=== PATIENT | female | born 1970 | race Two or more races ===

== ENCOUNTER 2018-02-13 23:19 | Emergency (ER) | payer OTHER ==
[~2018-02-13] VITALS: Ht 152.4 cm; Wt 72.6 kg
[2018-02-14] MEDS ORDERED: cloNIDine HCL 0.1 MG TAB PO ONE (00:45)
[2018-02-14 00:50] LABS: Basophils # (auto) 0.1 uL; Basophils % (auto) 1.1 % (0.0-2.0); Eosinophils # (auto) 0.3 uL; Eosinophils % (auto) 2.7 % (0.0-7.0); Hematocrit 43.3 % (36.0-46.0); Hemoglobin 14.7 g/dL (12.2-16.2); Lymphocytes % (auto) 29.1 % (10.0-50.0); Mean Corpuscular Hemoglobin 31.1 pg (28.0-32.0); Mean Corpuscular Hgb Conc. 33.9 g/dL (32.0-36.0); Mean Corpuscular Volume 91.6 fL (80.0-100.0); Monocytes # (auto) 0.8 uL; Monocytes % (auto) 7.8 % (0.0-12.0); Neutrophils # (auto) 6.1 uL; Neutrophils % (auto) 59.3 % (37.0-80.0); Nucleated Red Blood Cells % 0.1 %; Platelet Count (auto) 381 10^3/uL (140-450); Red Blood Cells 4.73 10^6/uL (4.0-5.20); Red Cell Distribution Width 13.3 % (11.8-14.3); White Blood Cell 10.3 10^3/uL (4.4-10.8)
[2018-02-14 01:05] LABS: Alanine Aminotransferase 40 U/L (13-56); Albumin 3.7 g/dL (3.4-5.0); Anion Gap 10 (5-15); Aspartate Aminotransferase 18 U/L (15-37); BUN/Creatinine Ratio 13.2; Blood Urea Nitrogen 14 mg/dL (7-18); Calcium 8.1 mg/dL (8.5-10.1); Carbon Dioxide 24 mmol/L (21-32); Chloride 106 mmol/L (98-107); GFR African American 72 mL/min; GFR Non-African American 59 mL/min; Glucose 95 mg/dL (74-106); Potassium 3.6 mmol/L (3.5-5.1); Sodium 140 mmol/L (136-145)
[2018-02-14 01:08] LABS: Alkaline Phosphatase 97 U/L (45-117); Bilirubin, Total 0.4 mg/dL (0.2-1.0); Total Protein 7.7 g/dL (6.4-8.2)
[2018-02-14 01:11] LABS: INR 0.97 (0.9-1.15); Partial Thromboplastin Time 31.1 sec (23.78-33.04); Prothrombin Time 10.4 sec (9.27-12.13)
[2018-02-14 02:00] VITALS: BP 143/100
[2018-02-14] MEDS ORDERED: IBUPROFEN 600 MG TAB PO ONE (02:30)
[2018-02-14 03:21] LABS: Urine Bacteria FEW /hpf (None Seen); Urine Blood Negative /uL (Negative); Urine Specific Gravity 1.006 (1.001-1.035); Urine WBC 1 /hpf (0 - 5)
[2018-02-14 03:24] LABS: Alcohol, Urine < 3.0 mg/dL (0-5); Amphetamine Screen, Urine NEGATIVE (NEGATIVE); Barbiturate Scree,Urine NEGATIVE (NEGATIVE); Benzodiazephine Screen, Urine NEGATIVE (NEGATIVE); Cannabinoid Screen, Urine NEGATIVE (NEGATIVE); Cocaine Screen, Urine NEGATIVE (NEGATIVE); Opiate Scree,Urine NEGATIVE (NEGATIVE); Phencyclidine Screen, Urine NEGATIVE (NEGATIVE)
== END 2018-02-14 04:24 | disposition home or self-care (01) ==
LOC: ER 23:19
DX: I10 Essential (primary) hypertension (principal); Z88.8 Allergy status to other drugs, medicaments and biological substances
CPT/HCPCS: 36415; 71045; 80053; 80307; 81001; 84484; 85025; 85610; 85730; 93005

== ENCOUNTER 2023-10-12 13:30 | Inpatient (IN) | payer MEDICAID, OTHER ==
[~2023-10-12] VITALS: Ht 152.4 cm; Wt 70.3 kg
[2023-10-12] MEDS: SODIUM CHLORIDE 0.9% 1,000 ML IVB ONE (13:45)
[2023-10-12 14:05] LABS: Chloride 105 mmol/L (98-107); Potassium 3.7 mmol/L (3.5-5.1)
[2023-10-12 14:06] LABS: Anion Gap 8 (5-15); Carbon Dioxide 27 mmol/L (20-30)
[2023-10-12 14:07] LABS: Calcium 9.6 mg/dL (8.7-10.4)
[2023-10-12 14:11] LABS: Glucose 113 mg/dL (74-106)
[2023-10-12 14:14] LABS: Urine Bacteria NONE SEEN /hpf (None Seen); Urine Blood Negative /uL (Negative); Urine Clarity Clear (Clear); Urine Color Colorless (Yellow); Urine Hyaline Cast FEW /lpf (0 - 2); Urine Protein, UAD Negative (Negative); Urine Specific Gravity 1.005 (1.001-1.035); Urine Urobilinogen Normal (Negative); Urine WBC 1 /hpf (0 - 5); Urine pH 7.5 (5.0-8.0)
[2023-10-12 14:16] LABS: Basophils # (auto) 0.1 10 ^3/uL (0-0.2); Basophils % (auto) 0.9 % (0.0-2.0); Eosinophils # (auto) 0.1 10 ^3/uL (0-0.8); Eosinophils % (auto) 1.2 % (0.0-7.0); Hematocrit 41.6 % (36.0-46.0); Hemoglobin 14.2 g/dL (12.2-16.2); Lymphocytes # (auto) 2.7 10 ^3/uL (0.4-5.4); Lymphocytes % (auto) 25.9 % (10.0-50.0); Mean Corpuscular Hemoglobin 29.8 pg (28.0-32.0); Mean Corpuscular Volume 87.5 fL (80.0-100.0); Monocytes # (auto) 1.4 10 ^3/uL (0-1.3); Monocytes % (auto) 13.5 % (0.0-12.0); Neutrophils % (auto) 58.5 % (37.0-80.0); Nucleated Red Blood Cells % 0.1 %; Red Blood Cells 4.75 10^6/uL (4.0-5.20); Red Cell Distribution Width 13.9 % (11.8-14.3); White Blood Cell 10.3 10^3/uL (4.4-10.8)
[2023-10-12 14:51] LABS: Sodium 140 mmol/L (136-145)
[2023-10-12 14:52] LABS: BUN/Creatinine Ratio 12.4 (10.0-20.0); Blood Urea Nitrogen 13 mg/dL (9-23)
[2023-10-12] MEDS ORDERED: DOCUSATE SOD 100 MG CAP PO PRN (17:00)
[2023-10-12 21:27] LABS: Creatinine, Urine 22.44 mg/dL (30.0-125.0)
[2023-10-12] MEDS: metroNIDAZOLE 500MG/100ML 100 ML IV ONE (21:29)
[2023-10-12] MEDS: KETOROLAC TROMETH 30 MG/ML 1ML VIAL IV ONE (21:29)
[2023-10-12] MEDS: SODIUM CHLORIDE 0.9% 1,000 ML IV SCH (22:24)
[2023-10-12] MEDS: PIPERACILLIN-TAZOB 3.375GM 100 ML IV SCH (22:24)
[2023-10-13 06:12] LABS: Basophils # (auto) 0.1 10 ^3/uL (0-0.2); Basophils % (auto) 0.5 % (0.0-2.0); Eosinophils # (auto) 0.3 10 ^3/uL (0-0.8); Eosinophils % (auto) 2.6 % (0.0-7.0); Hemoglobin 13.9 g/dL (12.2-16.2); Lymphocytes # (auto) 2.4 10 ^3/uL (0.4-5.4); Lymphocytes % (auto) 21.3 % (10.0-50.0); Mean Corpuscular Hemoglobin 29.3 pg (28.0-32.0); Mean Corpuscular Hgb Conc. 33.1 g/dL (32.0-36.0); Mean Corpuscular Volume 88.3 fL (80.0-100.0); Monocytes # (auto) 1.3 10 ^3/uL (0-1.3); Monocytes % (auto) 11.9 % (0.0-12.0); Neutrophils # (auto) 7.1 10 ^3/uL (1.6-8.6); Neutrophils % (auto) 63.7 % (37.0-80.0); Red Blood Cells 4.76 10^6/uL (4.0-5.20); Red Cell Distribution Width 13.8 % (11.8-14.3); White Blood Cell 11.1 10^3/uL (4.4-10.8)
[2023-10-13] MEDS: MORPHINE SULFATE INJ 2 MG/ml SYRG IV PRN (06:20)
[2023-10-13] MEDS: ONDANSETRON HCL 4 MG/2 ML VIAL IV PRN (06:20)
[2023-10-13 06:30] VITALS: PULSE 76; RESP 21; O2SAT 96
[2023-10-13 06:32] LABS: Alanine Aminotransferase 16 U/L (7-40); Albumin 4.6 g/dL (3.2-4.8); Alkaline Phosphatase 107 U/L (46-116); Anion Gap 9 (5-15); Aspartate Aminotransferase 18 U/L (13-40); BUN/Creatinine Ratio 9.7 (10.0-20.0); Blood Urea Nitrogen 10 mg/dL (9-23); Calcium 9.4 mg/dL (8.5-10.1); Carbon Dioxide 27 mmol/L (20-30); Chloride 103 mmol/L (98-107); Glucose 104 mg/dL (74-106); Potassium 3.4 mmol/L (3.5-5.1); Sodium 139 mmol/L (136-145)
[2023-10-13 06:33] LABS: Bilirubin, Total 0.6 mg/dL (0.2-1.0); Total Protein 7.1 g/dL (5.7-8.2)
[2023-10-13 07:30] VITALS: PULSE 80; RESP 13; O2SAT 97
[2023-10-13 10:45] VITALS: BP 156/95; PULSE 81; RESP 17; TEMP 97.9; O2SAT 99
[2023-10-13 13:00] VITALS: BP 141/96; PULSE 79; RESP 16; TEMP 97.6; O2SAT 98
[2023-10-13 16:56] VITALS: BP 142/92; PULSE 81; RESP 16; TEMP 98.2; O2SAT 98
[2023-10-13 20:16] VITALS: PULSE 76; RESP 17; O2SAT 96
[2023-10-13] MEDS ORDERED: hydrALAZINE HCL 20 MG/ML VL IV PRN (21:15)
[2023-10-14] MEDS: LISINOPRIL 5 MG TAB PO ONE (00:10)
[2023-10-14 05:00] VITALS: BP 131/86; PULSE 82; RESP 17; TEMP 98.2; O2SAT 98
[2023-10-14 06:38] LABS: Basophils # (auto) 0.1 10 ^3/uL (0-0.2); Eosinophils # (auto) 0.6 10 ^3/uL (0-0.8); Eosinophils % (auto) 6.8 % (0.0-7.0); Hematocrit 39.7 % (36.0-46.0); Hemoglobin 13.2 g/dL (12.2-16.2); Lymphocytes # (auto) 2.4 10 ^3/uL (0.4-5.4); Lymphocytes % (auto) 28.4 % (10.0-50.0); Mean Corpuscular Hemoglobin 29.7 pg (28.0-32.0); Mean Corpuscular Hgb Conc. 33.3 g/dL (32.0-36.0); Mean Corpuscular Volume 89.2 fL (80.0-100.0); Monocytes # (auto) 0.9 10 ^3/uL (0-1.3); Monocytes % (auto) 10.3 % (0.0-12.0); Neutrophils # (auto) 4.6 10 ^3/uL (1.6-8.6); Neutrophils % (auto) 53.5 % (37.0-80.0); Red Blood Cells 4.45 10^6/uL (4.0-5.20); Red Cell Distribution Width 13.7 % (11.8-14.3); White Blood Cell 8.5 10^3/uL (4.4-10.8)
[2023-10-14 06:40] LABS: Calcium 9.3 mg/dL (8.5-10.1); Chloride 108 mmol/L (98-107); Potassium 3.6 mmol/L (3.5-5.1); Sodium 141 mmol/L (136-145)
[2023-10-14 06:41] LABS: Anion Gap 8 (5-15); Carbon Dioxide 25 mmol/L (20-30)
[2023-10-14 06:46] LABS: BUN/Creatinine Ratio 10.7 (10.0-20.0); Blood Urea Nitrogen 14 mg/dL (9-23); Glucose 97 mg/dL (74-106); Triglycerides 93 mg/dL (< 150)
[2023-10-14 06:47] LABS: LDL Cholesterol 127 mg/dL (< 100)
[2023-10-14 06:48] LABS: Cholesterol 183 mg/dL (< 200); HDL Cholesterol 47 mg/dL (40-59)
[2023-10-14 07:01] LABS: Magnesium 2.1 mg/dL (1.6-2.6)
[2023-10-14 08:00] VITALS: BP 123/84; PULSE 75; RESP 18; TEMP 98.3; O2SAT 95
[2023-10-14] MEDS: LISINOPRIL 5 MG TAB PO SCH (10:16)
[2023-10-14 13:00] VITALS: BP 127/81; PULSE 79; RESP 18; TEMP 98; O2SAT 96
[2023-10-14 13:32] VITALS: BP 123/84; PULSE 75; RESP 18; TEMP 98.3; O2SAT 95
[2023-10-14] MEDS ORDERED: METR-344 PO (14:36)
[2023-10-14] MEDS ORDERED: CIPR-173 PO (14:36)
== END 2023-10-14 14:28 | disposition home or self-care (01) | DRG 244 ==
LOC: ER 13:30 → OVERFLOW 18:28 → WEST WING 10-13 11:04
PROVIDERS: ADMIT Internal Medicine Pulmonary Disease; ATTEND Internal Medicine Pulmonary Disease
DX: K57.32 Diverticulitis of large intestine without perforation or abscess without bleeding (principal); N17.0 Acute kidney failure with tubular necrosis; D72.829 Elevated white blood cell count, unspecified; J45.909 Unspecified asthma, uncomplicated; I10 Essential (primary) hypertension; E87.6 Hypokalemia; I16.0 Hypertensive urgency; E66.9 Obesity, unspecified; Z68.30 Body mass index [BMI] 30.0-30.9, adult; Z83.3 Family history of diabetes mellitus; Z88.6 Allergy status to analgesic agent; Z86.11 Personal history of tuberculosis
CPT/HCPCS: 36415; 74176; 80048; 80053; 80061; 81001; 82306; 82570; 83036; 83735; 84300; 84439; 84443; 85025; 93005; 96360; G0378; J1885; J2405; J2543; J3490

== ENCOUNTER 2025-02-03 15:11 | Inpatient (IN) | payer MEDICAID ==
[~2025-02-03] VITALS: Ht 152.4 cm; Wt 75.4 kg
[~2025-02-03 15:11] MED LIST: CIPR-173 PO; METR-344 PO
[2025-02-03] MEDS: MECLIZINE HCL 25 MG TAB PO ONE (15:44)
[2025-02-03] MEDS: ONDANSETRON ODT 4 MG TAB PO ONE (15:45)
--- NOTE | 2025-02-03 15:55 | DVH ---
CHEST RADIOGRAPH Indication: Shortness of breath Technique: Single frontal view of the chest was obtained Comparison: None FINDINGS: Lines and Tubes: None Lungs: No focal consolidation. Pleura: No effusion. No pneumothorax. Cardiomediastinal contours: Unremarkable Bones: No acute osseous abnormality. Moderate degenerative changes of bilateral AC joints. IMPRESSION: No acute cardiopulmonary disease.
[2025-02-03 16:01] LABS: Hematocrit 40.8 % (36.0-46.0); Hemoglobin 14.1 g/dL (12.2-16.2); Mean Corpuscular Hemoglobin 30.8 pg (28.0-32.0); Mean Corpuscular Volume 88.7 fL (80.0-100.0); Nucleated Red Blood Cells % 0.0 %
[2025-02-03 16:10] LABS: Chloride 104 mmol/L (98-107); Potassium 4.3 mmol/L (3.5-5.1); Sodium 140 mmol/L (136-145)
[2025-02-03 16:11] LABS: Anion Gap 9 (5-15); Carbon Dioxide 27 mmol/L (20-31)
[2025-02-03 16:12] LABS: Calcium 10.9 mg/dL (8.7-10.4)
[2025-02-03 16:16] LABS: BUN/Creatinine Ratio 22.7 (10.0-20.0)
[2025-02-03 16:17] LABS: Blood Urea Nitrogen 29 mg/dL (9-23); Glucose 108 mg/dL (74-106)
[2025-02-03 16:35] LABS: Urine Protein, UAD Negative (Negative)
--- NOTE | 2025-02-03 17:38 | ED.PDOC ---
History of Present Illness HPI Comments 55 y/o obese F, with a history of asthma and HTN, presents with c/c of dizziness, shortness a breath and anxiety related to her dizziness concerns. Patient endorses on being sent from [facility] urgent care facility due to concerns after being found bradycardic at 58 when evaluated for dizziness, earlier. No recent injuries, known sick contact, travel, or additional pertinent medical history or events leading to symptoms endorsed. Patient denies having any chest pain, headache, fever, chills. Patient does complain of shortness a breath concerns. Upon arrival to ED triage, patient had a heart rate of 69. Patient was hypertensive at arrival. Chief Complaint: Dizziness Time Seen by MD: 15:30 Primary Care Provider: CLINICA MEDICA Reviewed Notes: Nurses Notes, Medications, Allergies Allergies: Coded Allergies: Acetaminophen (Verified Allergy, Unknown, 02/13/18) Ibuprofen (Verified Allergy, Unknown, 10/12/23) Home Meds Active Scripts Metronidazole (Flagyl) 500 Mg Tab, 500 MG PO TID for 5 Days, #15 TAB Prov:JASON IBRAHIM RESIDENT 10/14/23 Ciprofloxacin Hcl (Cipro) 500 Mg Tab, 500 MG PO BID for 5 Days, #10 TAB Prov:JASON IBRAHIM RESIDENT 10/14/23 Information Source: Patient Mode of Arrival: Ambulatory Severity: Moderate Timing: Hours Duration: Since onset Prehospital treatment: None Past Medical History PAST MEDICAL HISTORY: Asthma, HTN Surgical History: Denies all surgeries FERRY HAND History: Denies all FERRY HAND Hx Family History Family History: Family hx of DM, Family hx of heart shawn Social History Smoker: Non-Smoker Alcohol: Occasionally Drugs: Denies Drug Use Lives In: Home Constitutional: reports: weakness; denies: chills, diaphoresis, fatigue, fever, malaise, sweats, others EENTM: denies: blurred vision, double vision, ear bleeding, ear discharge, ear drainage, ear pain, ear ringing, eye pain, eye redness, hearing loss, mouth pain, mouth swelling, nasal discharge, nose bleeding, nose congestion, nose pain, photophobia, tearing, throat pain, throat swelling, voice changes, others Respiratory: reports: SOB at rest; denies: cough, hemoptysis, orthopnea, shortness of breath, SOB with excertion, stridor, wheezing, others Cardiovascular: denies: chest pain, dizzy spells, diaphoresis, Dyspnea on exe rtion, edema, irregular heart beat, left arm pain, lightheadedness, palpitations, PND, syncope, others Gastrointestinal: denies: abdomen distended, abdominal pain, blood streaked bowels, constipated, diarrhea, dysphagia, difficulty swallowing, hematemesis, melena, nausea, poor appetite, poor fluid intake, rectal bleeding, rectal pain, vomiting, others Genitourinary: denies: abnormal vagina bleeding, burning, dyspareunia, dysuria, flank pain, frequency, hematuria, incontinence, pain, , vagina discharge, urgency, others Neurological: reports: dizziness; denies: fainting, headache, left sided numbness, left sided weakness, numbness, paresthesia, pre-existing deficit, right sided numbness, right sided weakness, seizure, speech problems, tingling, tremors, weakness, others Musculoskeletal: denies: back pain, gout, joint pain, joint swelling, muscle pain, muscle stiffness, neck pain, others Integumetry: denies: bruises, change in color, change in hair/nails, dryness, laceration, lesions, lumps, rash, wounds, others Allergic/Immunocompromised: denies: Difficulty Healing, Frequent Infections, Hives, Itching, others Hematologic/Lymphatic: denies: anemia, blood clots, easy bleeding, easy bruising, swollen glands, others Endocrine: denies: excessive hunger, excessive sweating, excessive thirst, excessive urination, flushing, intolerance to cold, intolerance to heat, unexplained weight gain, unexplained weight loss, others Psychiatric: reports: anxiety; denies: bipolar disorder, depression, hopeless, panic disorder, schizophrenia, sleepless, suicidal, others All Other Systems: Reviewed and Negative (Comprehensive review of systems are negative unless stated in HPI) Physical Exam General Appearance: Moderate Distress ([id number] distress due to dizziness and shortness a breath concerns.), Obese HEENT: Head (Cranial exam was unremarkable. No signs of trauma. No skull depressions or deformities.), Normal ENT Inspection, Pharynx Normal, TMs Normal Neck: Full Range of Motion, Non-Tender, Normal, Normal Inspection Respiratory: Chest Non-Tender, Lungs Clear, No Accessory Muscle Use, No Respiratory Distress, Normal Breath Sounds, Other (Unremarkable auscultation b ilateral lung [place].) Cardiovascular: No Edema, No JVD, No Murmur, No Gallop, Normal Peripheral Pulses, Regular Rate/Rhythm Breast Exam: Deferred Gastrointestinal: No Organomegaly, Non Tender, No Pulsatile Mass, Normal Bowel Sounds, Soft Genitalia: Deferred Pelvic: Deferred Rectal: Deferred Extremities: No calf tenderness, Normal capillary refill, Normal inspection, Normal range of motion, Non-tender, No pedal edema Neurologic: Alert, No Motor Deficits, Normal Affect, Normal Mood, No Sensory Deficits Cerebellar Function: Normal Reflexes: Normal Skin: Dry, Normal Color, Warm Lymphatic: No Adenopathy Was a procedure done? Was a procedure done?: No EKG EKG : Pulse Rate (adult): 65 [place]: Normal Cardiac Rhythm: NSR Block: None Hypertrophy: None ST: Normal Differential Dx Considerations may include: bradycardia, dehydration, electrolyte imbalance, acute vertigo, among others X-Ray, Labs, Meds, VS Vital Signs Date Time Temp Pulse Resp B/P (MAP) Pulse Ox O2 Delivery O2 Flow Rate FiO2 02/03/25 17:38 65 02/03/25 15:35 65 02/03/25 15:20 98.1 69 18 151/93 (112) 99 98.1 Lab Test 02/03/25 16:38 02/03/25 16:27 02/03/25 15:48 02/03/25 15:27 Range/Units Troponin I High Sensitivity < 3 L 3 L </=34 ng/L Urine Color Colorless Yellow Urine Clarity Clear Clear Urine pH 6.0 5.0-9.0 Urine Specific [place] 1.010 1.001-1.035 Urine Protein Negative Negative Urine Ketones Negative Negative Urine Blood Negative Negative /uL Urine Nitrite Negative Negative Urine Bilirubin Negative Negative Urine Urobilinogen Normal Negative mg/dL Urine Leukocyte Esterase Trace Negative /uL Urine RBC <1 0 - 4 /hpf Urine Microscopic WBC 5 0-5 /HPF Urine Squamous Epithelial Cells Few <5 /hpf Urine Bacteria Few H None Seen /hpf Urine Glucose Normal Normal mg/dL White Blood Count 20.8 H 4.4-10.8 10^3/uL Red Blood Count 4.60 4.0-5.20 10^6/uL Hemoglobin 14.1 12.2-16.2 g/dL Hematocrit 40.8 36.0-46.0 % Mean Corpuscular Volume 88.7 80.0-100.0 fL Mean Corpuscular Hemoglobin 30.8 28.0-32.0 pg Mean Corpuscular Hemoglobin Concent 34.7 32.0-36.0 g/dL Red Cell Distribution Width 13.9 11.8-14.3 % Platelet Count 430 140-450 10^3/uL Mean Platelet Volume 7.6 6.9-10.8 fL Neutrophils (%) (Auto) 82.3 H 37.0-80.0 % Lymphocytes (%) (Auto) 12.4 10.0-50.0 % Monocytes (%) (Auto) 5.1 0.0-12.0 % Eosinophils (%) (Auto) 0.0 0.0-7.0 % Basophils (%) (Auto) 0.2 0.0-2.0 % Neutrophils # (Auto) 17.1 H 1.6-8.6 10 ^3/uL Lymphocytes # (Auto) 2.6 0.4-5.4 10 ^3/uL Monocytes # (Auto) 1.1 0-1.3 10 ^3/uL Eosinophils # (Auto) 0 0-0.8 10 ^3/uL Basophils # (Auto) 0 0-0.2 10 ^3/uL Nucleated Red Blood Cells 0.0 % D-Dimer, Quantitative 0.31 0.0-0.49 mg/L FEU Sodium Level 140 136-145 mmol/L Potassium Level 4.3 3.5-5.1 mmol/L Chloride Level 104 98-107 mmol/L Carbon Dioxide Level 27 20-31 mmol/L Anion Gap 9 5-15 Blood Urea Nitrogen 29 H 9-23 mg/dL Creatinine 1.28 H 0.550-1.02 mg/dL Glomerular Filtration Rate Calc 50 >90 mL/min BUN/Creatinine Ratio 22.7 H 10.0-20.0 Serum Glucose 108 H 74-106 mg/dL Calcium Level 10.9 H 8.7-10.4 mg/dL B-Type Natriuretic Peptide 30.39 0-100 pg/mL POC Glucose 108 H 70-106 mg/dl Current Medications Medications (Trade) Dose Ordered Sig/Mallika Route Start Time Stop Time Status Last Admin Meclizine HCl (Antivert Tablet) 25 mg ONCE ONCE PO 02/03/25 15:45 02/03/25 15:46 DC 02/03/25 15:44 Ondansetron HCl (Zofran Po) 4 mg ONCE ONCE PO 02/03/25 15:45 02/03/25 15:46 DC 02/03/25 15:[address] [address] Ph: [phone] DIAGNOSTIC IMAGING Diagnostic Imaging Report : [id number] Signed PATIENT: FAUSTINO FUENTES ACCT: [id number] UNIT: [id number] : 1970 LOC: ER ROOM / BED: / AGE / SEX: 55 / F ADM STATUS: REG ER SERVICE 1532 ORDERING PHYSICIAN: ZOË BATISTA PAC PROCEDURE(s): CXRP - CHEST PORTABLE REASON: Shortness of breath ORDER NUMBER(s): [id number], ACCESSION NUMBER(s): [id number] CHEST RADIOGRAPH Indication: Shortness of breath Technique: Single frontal view of the chest was obtained Comparison: None FINDINGS: Lines and Tubes: None Lungs: No focal consolidation. Pleura: No effusion. No pneumothorax. Cardiomediastinal contours: Unremarkable Bones: No acute osseous abnormality. Moderate degenerative changes of bilateral AC joints. IMPRESSION: No acute cardiopulmonary disease. ATED BY: BRIE WOODWARD DO DICTATED DATE/TIME: 02/03/25 155 SIGNED BY: BRIE WOODWARD DO SIGNED DATE/TIME: 02/03/251551 CC: X-Ray, Labs, Meds, VS Comment All studies performed the ED were evaluated by me personally. Patient had an elevated leukocytosis in her serum count. Patient did recently receive a steroid injection for a rash concern. Could be related to that event. Additionally, patient reveals acute renal injury concerns with a elevated BUN and CREAT. Patient's EKG revealed a sinus rhythm with a rate of 65. Probable left ventricular hypertrophy and borderline prolonged QT interval. [place] interval of 127 and QT interval 470. Due to the patient's bradycardic event at [facility] as well as what appears to be acute renal concerns, patient will be admitted for cardiac and nephrology evaluation. Time of 1ST Reevaluation: 18:09 Reevaluation 1ST: Improved Consultation: PCP Patient Education/Counseling: Diagnosis, Treatment, Need For Follow Up Family Education/Counseling: Diagnosis, Treatment, No Family Present SEPSIS Sepsis Screen Date sepsis recognized/suspect: Feb 03, 2025 Time Sepsis recognized/suspect: 1521 Recent Procedure: No On Antibiotic Therapy: No Respiratory Rate >20: No Heart Rate >90: No Temp<36 C (96.8 F) or >38.3 C: No SBP <90 or MAP <65 mmHG: No New Acute Mental Status Change: No Is the patient on CPAP, BIPAP,: No Physician Orders Chest Portable (02/03/25 15:32) Electrocardigram (02/03/25 15:32) Vital Signs Date Time Temp Pulse Resp B/P (MAP) Pulse Ox O2 Delivery O2 Flow Rate FiO2 02/03/25 17:38 65 02/03/25 15:35 65 02/03/25 15:20 98.1 69 18 151/93 (112) 99 98.1 Laboratory Tests Test 02/03/25 15:48 White Blood Count 20.8 10^3/uL (4.4-10.8) H Medications Medications Dose Ordered Sig/Mallika Route Start Time Stop Time Status Last Admin Dose Admin Meclizine HCl 25 mg ONCE ONCE PO 02/03/25 15:45 02/03/25 15:46 DC 02/03/25 15:44 Ondansetron HCl 4 mg ONCE ONCE PO 02/03/25 15:45 02/03/25 15:46 DC 02/03/25 15:45 Departure 1 Departure Time of Disposition: 18:09 Impression: Primary Impression: Acute diverticulitis Additional Impressions: Acute coronary syndrome Dizziness Disposition: 09 ADMITTED INPATIENT Condition: Stable Discharged With: Self Critical Care Note Critical Care Time?: No Stability Stability form required: No Heart Score Heart Score: Heart Score Response (Comments) Value History Slightly Suspicious 0 EKG Repolarization Disturb 1 Age 45-64 1 Risk Factors 1 or 2 risk factors 1 Troponin Normal limit 0 Total 3 I personally scribed for ZOË BATISTA PAC ([email or web address]) on 02/03/25 at 17:38. Electronically submitted by Lawson Martinez ([email or web address]). I personally scribed for ZOË BATISTA PAC ([email or web address]) on 02/03/25 at 17:39. Electronically submitted by Lawson Martinez ([email or web address]). ZOË BATISTA PAC Feb 03, 2025 17:38
--- NOTE | 2025-02-03 19:10 | ECG ---
[facility] Test Date: 2025-02-03 Test Time: 15:35:18 Pat Name: FAUSTINO FUENTES Department: ER Room: 0209 Gender: F Plug Grower: ER : 1970 Requested By: ZOË BATISTA Order Number: [id number] Reading MD: Maverick Brandt Measurements Intervals [place] Rate: 65 P: 66 WV: 127 QRS: 14 QRSD: 148 T: 47 QT: 470 QTc: 489 Interpretive Statements Sinus rhythm Probable left ventricular hypertrophy Borderline prolonged QT interval Electronically Signed On 02-09-2025 17:42:24 PDT by Maverick Brandt Please click the below link to view image of tracing.
[2025-02-03] MEDS ORDERED: NITROGLYCERIN 0.4 MG SL TAB SL PRN (21:30)
[2025-02-03] MEDS ORDERED: MORPHINE SULFATE INJ 2 MG/ml SYRG IV PRN (21:30)
--- NOTE | 2025-02-03 21:31 | DVHHP2 ---
History of Present Illness History of Present Illness This is a 55-year-old female with past medical history of ASTHMA, HTN, HLD came to ER with a complain of shortness of breaths associated with dizziness, nausea and diarrhea. Patient went to [facility] urgent care on 01/30/2025 with complain of generalized itching and prescribed fexofenadine. After 2 days patient experienced nausea associated with diarrhea and back to urgent care discharge with Pedialyte. Patient passes 5-6 times loose stool, not mixed with blood or foul-smelling. Denies any recent sick contacts, ate street foods or recently completed any antibiotic. CT abdomen and pelvis on 09/2023- diverticulitis in the mid descending colon. Patient went to PCP yesterday, EKG shows sinus bradycardia with HR 56. Patient also complain of feeling air hunger but denies any wheezing, chest pain, fever. Patient history of anaphylactic reaction on 2016, need EpiPen injection. Patient gaining weight for last few months and snoring at nighttime, will be benefitted sleep apnea evaluation. Currently denies any headache, visual disturbance, abdominal pain, dysuria or any focal weakness. PAST MEDICAL HISTORY: Asthma, HTN, HLD Surgical History: Denies any surgeries CROWN CERAMIST History: Denies all CROWN CERAMIST Hx Family History: Family hx of DM Social History Smoker: Non-Smoker Alcohol: Occasionally Drugs: Denies Drug Use Lives In: Home Allergy: Tylenol, ibuprofen PCP: Unable to recall Review of Systems Constitutional: Yes: Weakness; No: Fever, Chills, Sweats, Malaise, Other Eyes: No: Pain, Vision change, Conjunctivae inflammation, Eyelid inflammation, Other, Redness ENT: No: Ear pain, Ear discharge, Nose pain, Nose discharge, Nose congestion, Mouth pain, Mouth swelling, Throat pain, Throat swelling, Other Respiratory: Shortness of breath; No: Cough, Dry, SOB with excertion, Wheezing, Hemoptysis, Pleuritic Pain, Sputum, Wheezing, Other Cardiovascular: No: Chest Pain, Palpitations, Orthopnea, Paroxysmal Noc. Dyspnea, Edema, Lt Headedness, Other Gastrointestinal: Nausea, Diarrhea; No: Vomiting, Abdominal Pain, Constipation, Melena, Hematochezia, Other Genitourinary: No Dysuria, No Frequency, No Incontinence, No Hematuria, No Retention, No Other Musculoskeletal: No: other, neck pain, shoulder pain, arm pain, back pain, hand pain, leg pain, foot pain Skin: No: Rash, Lesions, Jaundice, Bruising, Other Neurological: Other (Dizziness); No: Weakness, Numbness, Incoordination, Change in speech, Confusion, Seizures Allergies: Coded Allergies: Acetaminophen (Verified Allergy, Unknown, 02/13/18) Ibuprofen (Verified Allergy, Unknown, 10/12/23) Exam Vital Signs Vital Signs Date Time Temp Pulse Resp B/P (MAP) Pulse Ox O2 Delivery O2 Flow Rate FiO2 02/03/25 20:33 97.9 60 20 139/78 (98) 99 97.9 02/03/25 18:03 Room Air General Appearance: Alert, Oriented X3, Cooperative HEENT: Atraumatic, PERRLA, EOMI Respiratory: Clear to auscultation, Normal air movement Cardiovascular: Regular rate, Normal S1, Normal S2 Abdominal: Normal bowel sounds, Soft, No tenderness, No hepatospenomegaly Extremities: No clubbing, No cyanosis, No edema, Normal pulses Skin: No rashes, No breakdown Neuro: Normal gait, Normal speech, Strength at 5/5 X4 ext, Normal tone Labs/Xrays Labs Test 02/03/25 16:38 02/03/25 16:27 02/03/25 15:48 02/03/25 15:27 Range/Units Troponin I High Sensitivity < 3 L </=34 ng/L Urine Color Colorless Yellow Urine Clarity Clear Clear Urine pH 6.0 5.0-9.0 Urine Specific [place] 1.010 1.001-1.035 Urine Protein Negative Negative Urine Ketones Negative Negative Urine Blood Negative Negative /uL Urine Nitrite Negative Negative Urine Bilirubin Negative Negative Urine Urobilinogen Normal Negative mg/dL Urine Leukocyte Esterase Trace Negative /uL Urine RBC <1 0 - 4 /hpf Urine Microscopic WBC 5 0-5 /HPF Urine Squamous Epithelial Cells Few <5 /hpf Urine Bacteria Few H None Seen /hpf Urine Glucose Normal Normal mg/dL White Blood Count 20.8 H 4.4-10.8 10^3/uL Red Blood Count 4.60 4.0-5.20 10^6/uL Hemoglobin 14.1 12.2-16.2 g/dL Hematocrit 40.8 36.0-46.0 % Mean Corpuscular Volume 88.7 80.0-100.0 fL Mean Corpuscular Hemoglobin 30.8 28.0-32.0 pg Mean Corpuscular Hemoglobin Concent 34.7 32.0-36.0 g/dL Red Cell Distribution Width 13.9 11.8-14.3 % Platelet Count 430 140-450 10^3/uL Mean Platelet Volume 7.6 6.9-10.8 fL Neutrophils (%) (Auto) 82.3 H 37.0-80.0 % Lymphocytes (%) (Auto) 12.4 10.0-50.0 % Monocytes (%) (Auto) 5.1 0.0-12.0 % Eosinophils (%) (Auto) 0.0 0.0-7.0 % Basophils (%) (Auto) 0.2 0.0-2.0 % Neutrophils # (Auto) 17.1 H 1.6-8.6 10 ^3/uL Lymphocytes # (Auto) 2.6 0.4-5.4 10 ^3/uL Monocytes # (Auto) 1.1 0-1.3 10 ^3/uL Eosinophils # (Auto) 0 0-0.8 10 ^3/uL Basophils # (Auto) 0 0-0.2 10 ^3/uL Nucleated Red Blood Cells 0.0 % D-Dimer, Quantitative 0.31 0.0-0.49 mg/L FEU Sodium Level 140 136-145 mmol/L Potassium Level 4.3 3.5-5.1 mmol/L Chloride Level 104 98-107 mmol/L Carbon Dioxide Level 27 20-31 mmol/L Anion Gap 9 5-15 Blood Urea Nitrogen 29 H 9-23 mg/dL Creatinine 1.28 H 0.550-1.02 mg/dL Glomerular Filtration Rate Calc 50 >90 mL/min BUN/Creatinine Ratio 22.7 H 10.0-20.0 Serum Glucose 108 H 74-106 mg/dL Calcium Level 10.9 H 8.7-10.4 mg/dL B-Type Natriuretic Peptide 30.39 0-100 pg/mL POC Glucose 108 H 70-106 mg/dl SEPSIS Sepsis Screen Date sepsis recognized/suspect: Feb 03, 2025 Time Sepsis recognized/suspect: 1803 Recent Procedure: No On Antibiotic Therapy: No Respiratory Rate >20: No Heart Rate >90: No Temp<36 C (96.8 F) or >38.3 C: No SBP <90 or MAP <65 mmHG: No New Acute Mental Status Change: No Is the patient on CPAP, BIPAP,: No Physician Orders Chest Portable (02/03/25 15:32) Admit (02/03/25 21:25) Nitroglycerin Sublingual (Ntrostat Subli (02/03/25 21:30) Morphine Sulfate Injection (02/03/25 21:30) Cardiac Diet-2gna,Lofat,Lochol (02/04/25 Breakfast) Pantoprazole Tablet (Protonix Tablet) (02/04/25 06:00) Vital Signs Date Time Temp Pulse Resp B/P (MAP) Pulse Ox O2 Delivery O2 Flow Rate FiO2 02/03/25 20:33 97.9 60 20 139/78 (98) 99 97.9 02/03/25 18:03 69 20 99 Room Air 02/03/25 18:03 97.7 69 20 140/84 (102) 99 97.7 02/03/25 17:38 65 02/03/25 15:35 65 02/03/25 15:20 98.1 69 18 151/93 (112) 99 98.1 Laboratory Tests Test 02/03/25 15:48 White Blood Count 20.8 10^3/uL (4.4-10.8) H Medications Medications Dose Ordered Sig/Mallika Route Start Time Stop Time Status Last Admin Dose Admin Meclizine HCl 25 mg ONCE ONCE PO 02/03/25 15:45 02/03/25 15:46 DC 02/03/25 15:44 25 MG Ondansetron HCl 4 mg ONCE ONCE PO 02/03/25 15:45 02/03/25 15:46 DC 02/03/25 15:45 4 MG Assessment/Plan Assessment/Plan # SEPSIS DUE TO ACUTE DIVERTICULITIS -Patient came with dizziness, diarrhea -CT abdomen and pelvis on 09/2023-diverticulitis in the mid descending colon -During admission, leukocytosis with left shift, RR 20 (WBC 20.8, neutrophil 82.3) -In ER patient received, ondansetron and meclizine -Troponin x 2 negative,3 repeat troponin < 3 -EKG sinus rhythm, HR 65, QTC 489 -D-dimer-0.31, PT 10.8, INR 1.02, PTT 26.4. -BNP 30.39 -NSS 500 mL bolus and continue NSS 100 cc/hours -CT abdomen pelvis without contrast : Mild left-sided colonic diverticulosis without evidence of acute diverticulitis. -Lactic acid 2.6>1.4>1.7 -Ceftriaxone 1 g IV daily -Metronidazole 500 mg IV daily -Stool for C diff, A1c-5.5, TSH- 0.90, -Blood culture will follow -Clear liquid diet. # LACTIC ACIDOSIS -Lactic acid level 2.6>2.4, repeat lactic acid level-1.7 -NSS IV 100 cc/hour # H/O BRADYCARDIA RULE OUT CARDIAC DISEASE -Patient went to PCP yesterday and EKG shows bradycardia HR 56(as per patient) -EKG sinus rhythm, heart rate 65, QTC 489 -ECHO # HYPERCALCEMIA -Serum calcium level 10.9 -NSS 100 cc/hour -BMP repeat. 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 -Lisinopril 20 mg p.o. daily # HYPERLIPIDEMIA -CHOL 266, LDL 197, HDL 61, TG 96. -Atorvastatin 40 mg p.o. q.h.s. # ALLERGY DISORDER -H/o anaphylactic reaction needed EpiPen injection 2016. -Patient went to urgent care due to generalized itching prescribed fexofenadine 180 mg daily -Start fexofenadine 60 mg po q.12 H # VITAMIN-D DEFICIENCY -vitamin D3 level 21.8 Start vitamin D3 26543 units p.o. Q weekly # OBESITY, BMI 30.9 -Lifestyle modification -Lipid panel DIET: Cardiac GI prophylaxis: Pantoprazole 40 mg p.o. daily DVT prophylaxis: Lovenox 30 mg sc daily Goals of care discussions, more than 27 minute spent with patient. Full code status. Case discussed with Dr. Mojica. Plan discussed with: Patient, Other (Nurse) My Orders Orders - JOSIE NGUYEN RESIDENT Procedure Category Date Status Time Admit ADMIT 02/03/25 Verified 21:25 Nitroglycerin PHA 02/03/25 Verified Sublingual (Ntrostat 21:30 Morphine Sulfate PHA 02/03/25 Verified Injection 21:30 Cardiac DIET 02/04/25 Verified Diet-2gna,Lofat,Lochol Breakfast Pantoprazole Tablet PHA 02/04/25 Verified (Protonix Tablet) 06:00 Date of Service: Feb 03, 2025 Billing Provider: SARAH MOJICA MD Common Visit Codes: 53095-[id number] INP/OBS CARE (HIGH) Secondary Visit Codes: 70448-[id number] CARE PLAN 30 MINUTES JOSIE NGUYEN RESIDENT Feb 03, 2025 21:31
[2025-02-03 21:39] VITALS: O2SAT 98
[2025-02-03] MEDS: SODIUM CHLORIDE 0.9% 1,000 ML IV SCH (22:15)
[2025-02-03] MEDS ORDERED: AMLO1TAB23 PO (22:29)
[2025-02-03] MEDS ORDERED: ATOR10TA PO (22:29)
[2025-02-03] MEDS ORDERED: LISI20TA56 PO (22:29)
[2025-02-03] MEDS ORDERED: OMEP20TA PO (22:32)
[2025-02-03] MEDS ORDERED: ZINC100T5 PO (22:32)
[2025-02-03] MEDS ORDERED: MAGN400T40 PO (22:32)
[2025-02-03 22:33] VITALS: BP 132/84; PULSE 63; RESP 20; TEMP 98.1; O2SAT 97; O2SAT 98
[2025-02-03] MEDS: SODIUM CHLORIDE 0.9% 500 ML IV ONE (22:49)
[2025-02-03 22:50] LABS: Triglycerides 96 mg/dL (< 150)
[2025-02-03 22:53] LABS: Cholesterol 266 mg/dL (< 200); HDL Cholesterol 61 mg/dL (40-59)
[2025-02-03 23:09] LABS: INR 1.02 (0.9-1.15); Partial Thromboplastin Time 26.4 SEC (24.5-34.5); Prothrombin Time 10.8 sec (9.3-11.8)
[2025-02-03] MEDS ORDERED: ALBU0.084 IN (23:23)
[2025-02-03] MEDS ORDERED: ALB5IS NEB (23:23)
[2025-02-03 23:24] LABS: Lactic Acid w/Reflex 2.6 mmol/L (0.4-2.0)
--- NOTE | 2025-02-03 23:27 | DVH ---
Exam: CT CT AB PEL WO CON-NO ORAL OR IV History: History of acute diverticulitis and diarrhea Comparison Study: CT CT AB PEL WO CON-NO ORAL OR IV on DOS: 10/12/23 Technique: Multidetector spiral CT of the abdomen was performed from lung bases to pubic symphysis. Imaging was performed without IV contrast. Axial, coronal and sagittal multiplanar reformats were ob tained from the axial data set by the technologist. Radiation Dose : 1. Abdomen/Pelvis: CTDIvol mGy, DLP mGy*cm. Findings: Evaluation of solid organs is limited due to lack of intravenous contrast use. Lung Bases: No abnormality demonstrated. Liver: Liver is normal in size. No focal lesions noted. Gallbladder and Biliary Tree: No abnormality demonstrated. Spleen: No abnormality demonstrated. Pancreas: No abnormality demonstrated. Adrenal Glands: No abnormality demonstrated. Kidneys: No abnormality demonstrated. Bladder: Grossly unremarkable. Bowel: Stomach appears grossly unremarkable. No abnormally dilated or thick-walled loops of large or small bowel noted. Mild left-sided colonic diverticulosis without evidence of acute diverticulitis. Appendix appears unremarkable. Ascites: Absent Lymphadenopathy: No evidence of lymphadenopathy. Abdominal Wall and Mesentery: Unremarkable. Vasculature: Unremarkable. Pelvic Organs: IUD present. Otherwise unremarkable. No evidence of pelvic mass or fluid collection. Musculoskeletal: No bony lesions or fracture. IMPRESSION: No acute abdominal or pelvic findings. Mild left-sided colonic diverticulosis without evidence of acute diverticulitis. Radiation optimization: All CT scans at this facility use at least one of these dose optimization oneil hniques: automated exposure control mA and/or kV adjustment per patient size (includes targeted exam s where dose is matched to clinical indication) or iterative reconstruction.
[2025-02-04] VITALS (14 sets, daily range): BP systolic 99–140; BP diastolic 57–87; PULSE 55–79; RESP 16–20; TEMP 97.7–98.4; O2SAT 94–100
[2025-02-04] MEDS: cefTRIAXone 1GM/50ML D5W 50 ML IV ONE (00:40)
[2025-02-04] MEDS: PANTOPRAZOLE 40 MG TAB PO SCH (05:25)
[2025-02-04 05:43] LABS: Potassium 4.2 mmol/L (3.5-5.1); Sodium 143 mmol/L (136-145)
[2025-02-04 05:44] LABS: Anion Gap 10 (5-15); Calcium 9.6 mg/dL (8.7-10.4); Carbon Dioxide 25 mmol/L (20-31)
[2025-02-04 05:49] LABS: BUN/Creatinine Ratio 18.1 (10.0-20.0); Blood Urea Nitrogen 21 mg/dL (9-23); Chloride 108 mmol/L (98-107); Glucose 99 mg/dL (74-106)
[2025-02-04] MEDS: ALBUTEROL SULF 2.5 MG/0.5ML(0.5%) NEB SOLN NEB SCH (05:52)
[2025-02-04 08:37] LABS: Hematocrit 36.1 % (36.0-46.0); Hemoglobin 12.4 g/dL (12.2-16.2); Mean Corpuscular Hemoglobin 30.6 pg (28.0-32.0); Mean Corpuscular Volume 89.2 fL (80.0-100.0); Nucleated Red Blood Cells % 0.1 %
[2025-02-04 08:52] LABS: Alanine Aminotransferase 28 U/L (7-40); Albumin 4.2 g/dL (3.2-4.8); Alkaline Phosphatase 83 U/L (46-116); Bilirubin, Total 0.3 mg/dL (0.2-1.0); Total Protein 6.3 g/dL (5.7-8.2)
[2025-02-04 09:01] LABS: Bilirubin, Direct < 0.1 mg/dL (<0.3)
[2025-02-04 09:15] LABS: Lipase 56 U/L (12-53)
[2025-02-04] MEDS: LISINOPRIL 20 MG TAB PO SCH (10:00)
[2025-02-04 10:42] LABS: Hepatitis B Surface Antigen Negative (Negative); Hepatitis C Antibody Negative (Negative)
[2025-02-04] MEDS: FEXOFENADINE HCL 60 MG TAB PO SCH (13:20)
[2025-02-04] MEDS: cefTRIAXone 1GM/50ML D5W 50 ML IV SCH (13:20)
[2025-02-04] MEDS: ERGOCALCIFEROL 50,000 UNIT(1.25MG) CAP PO SCH (13:20)
[2025-02-04] MEDS: ENOXAPARIN SOD 30 MG/0.3 ML SYRINGE SC SCH (13:21)
--- NOTE | 2025-02-04 13:51 | DVHPNRES ---
Progress Note Date Seen: Feb 04, 2025 Resident Creating Document: KENTON HERNANDEZ RESIDENT Medical Necessity Reason Pt with a Central, PICC or Fol: No Subjective Review of Systems 55-year-old female with past medical history of ASTHMA, HTN, HLD came to ER with a complain of shortness of breaths associated with dizziness, nausea and diarrhea. A few days ago the patient experienced nausea and diarrhea for which she went to urgent care and was discharged with Pedialyte. She had 5-6 episodes of loose stool, not mixed with blood or foul-smelling. there was no abdominal pain. She denies any recent sick contacts, has not eaten any street foods or recently change in any medication. CT abdomen and pelvis on 09/2023- diverticulitis in the mid descending colon. Patient went to PCP day before, and EKG shows sinus bradycardia with HR 56. Patient denies any wheezing, chest pain, fever, headache, visual disturbance, abdominal pain, dysuria or any focal weakness. Patient report gaining weight for last few months and snoring at nighttime as well. PAST MEDICAL HISTORY: Asthma, HTN, HLD Surgical History: Denies any surgeries [employer] History: has IUD present Family History: Family hx of DM Social History Smoker: Non-Smoker Alcohol: Occasionally Drugs: Denies Drug Use Lives In: Home Allergy: Tylenol, ibuprofen ROS: patient was seen and examined by me in the bedside. Overnight events were reviewed. Patient reports that she is feeling better. She has slight nausea but has not passed any stool since day before yesterday as she has been on a liquid diet, says she is being pain quite often but with no new urinary symptoms. Rest of the ROS is negative. Objective vital signs Vital Sign Date Time Temp Pulse Resp B/P (MAP) Pulse Ox O2 Delivery O2 Flow Rate FiO2 02/04/25 13:27 111/73 02/04/25 13:00 98.4 60 18 98 98.4 02/04/25 11:17 Room Air 0.0 02/04/25 11:17 21 Total Intake and Output 02/03/25 02/03/25 02/04/25 15:00 23:00 07:00 Intake Total 250 ml Output Total 0 ml Balance 250 ml medications Current Medications Medications Dose Ordered Sig/Mallika Route Start Time Stop Time Status Last Admin Dose Admin Nitroglycerin 0.4 mg Q5MINP PRN SL 02/03/25 21:30 Morphine Sulfate 2 mg Q30M PRN IV 02/03/25 21:30 Pantoprazole Sodium 40 mg DAILY@0600 PO 02/04/25 06:00 02/04/25 05:25 40 MG Sodium Chloride 1,000 ml @ 100 mls/hr Q10H IV 02/03/25 22:15 02/04/25 13:30 100 MLS/HR Ceftriaxone Sodium 50 ml @ 100 mls/hr DAILY@09 IV 02/04/25 09:00 02/04/25 13:20 100 MLS/HR Metronidazole 100 ml @ 100 mls/hr Q8HR IV 02/04/25 06:00 02/04/25 05:25 100 MLS/HR Enoxaparin Sodium 30 mg DAILY SC 02/04/25 10:00 02/04/25 13:21 30 MG Amlodipine Besylate 10 mg DAILY PO 02/04/25 10:00 02/04/25 13:27 10 MG Lisinopril 20 mg DAILY PO 02/04/25 10:00 Albuterol 2.5 mg Q6HWA NEB 02/04/25 06:00 02/04/25 11:17 2.5 MG Fexofenadine HCl 60 mg Q12HR PO 02/04/25 10:00 02/04/25 13:20 60 MG Ergocalciferol 50,000 unit Q7D PO 02/04/25 09:00 02/04/25 13:20 50,000 UNIT Atorvastatin Calcium 40 mg HS PO 02/04/25 22:00 Examination Patient is lying in the bed General Appearance: Alert, Oriented X3, Cooperative HEENT: Atraumatic, PERRLA, EOMI Respiratory: Clear to auscultation, Normal air movement Cardiovascular: Regular rate, Normal S1, Normal S2 Abdominal: Normal bowel sounds, Soft, No hepatospenomegaly, left lower quadrant tenderness Extremities: No clubbing, No cyanosis, No edema, Normal pulses Skin: No rashes, No breakdown Neuro: Normal gait, Normal speech, Strength at 5/5 X4 ext, Normal tone Psychological: Normal mental status laboratory and microbiology Laboratory Tests 02/04/25 05:06 Test 02/04/25 05:06 Range/Units Serum Glucose 99 74-106 mg/dL Labs and/or images reviewed: Labs reviewed by me, Image(s) reviewed by me Problem List/Assessment/Plan Problem List/Assessment/Plan # sepsis due to ? gastroenteritis / colitis possible infective etiology -BNP 30.39 -NSS 500 mL bolus and continue NSS 100 cc/hours -CT abdomen pelvis without contrast : Mild left-sided colonic diverticulosis without evidence of acute diverticulitis. 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 -Lisinopril 20 mg p.o. daily # HYPERLIPIDEMIA -CHOL 266, LDL 197, HDL 61, TG 96. -Atorvastatin 40 mg p.o. q.h.s. # ALLERGY DISORDER -H/o anaphylactic reaction needed EpiPen injection 2016. -Patient went to urgent care due to generalized itching prescribed fexofenadine 180 mg daily -Start fexofenadine 60 mg po q.12 H # VITAMIN-D DEFICIENCY -vitamin D3 level 21.8 Start vitamin D3 09851 units p.o. Q weekly # OBESITY, BMI 30.9 -Lifestyle modification -Lipid panel # possible sleep apnea -polysomnography outpatient DIET: Cardiac; soft diet GI prophylaxis: Pantoprazole 40 mg p.o. daily DVT prophylaxis: Lovenox 30 mg sc daily Goals of care discussions, more than 27 minute spent with patient. Full code status. Case discussed with Dr Cornejo, nurse, and patient Plan discussed with: Patient, Other (rn) My Orders My Orders Orders - KENTON HERNANDEZ RESIDENT Procedure Category Date Status Time Soft Diet DIET 02/04/25 Transmitted Dinner Rapid Influenza [facility]&B [facility] 02/04/25 Logged 13:44 Covid19 Antigen [facility] 02/04/25 Logged Date of Service: Feb 04, 2025 Billing Provider: EDIE CORNEJO MD Common Visit Codes: [id number] INP/OBS CARE(HIGH) KENTON HERNANDEZ RESIDENT Feb 04, 2025 13:51 EDIE CORNEJO MD Feb 04, 2025 23:57
[2025-02-04] MEDS ORDERED: KETOROLAC TROMETH 30 MG/ML 1ML VIAL IV ONE (17:45)
[2025-02-04] MEDS: KETOROLAC TROMETH 30 MG/ML 1ML VIAL IV ONE (19:53)
[2025-02-04 20:20] LABS: COVID19 ANTIGEN SOFIA FIA NEGATIVE (NEGATIVE)
[2025-02-04] MEDS ORDERED: ATORVASTATIN 20 MG TAB PO SCH (22:00)
[2025-02-04] MEDS: ATORVASTATIN 20 MG TAB PO SCH (22:29)
[2025-02-05] VITALS (13 sets, daily range): BP systolic 92–140; BP diastolic 65–90; PULSE 60–75; RESP 14–20; TEMP 96.7–98.1; O2SAT 94–100
[2025-02-05 08:20] LABS: Hematocrit 38.9 % (36.0-46.0); Hemoglobin 13.0 g/dL (12.2-16.2); Mean Corpuscular Hemoglobin 30.5 pg (28.0-32.0); Mean Corpuscular Volume 91.0 fL (80.0-100.0); Nucleated Red Blood Cells % 0.2 %
[2025-02-05 08:30] LABS: Alanine Aminotransferase 20 U/L (7-40); Albumin 3.9 g/dL (3.2-4.8); Alkaline Phosphatase 82 U/L (46-116); Anion Gap 12 (5-15); BUN/Creatinine Ratio 16.1 (10.0-20.0); Blood Urea Nitrogen 20 mg/dL (9-23); Calcium 9.2 mg/dL (8.7-10.4); Carbon Dioxide 22 mmol/L (20-31); Glucose 82 mg/dL (74-106); Potassium 4.0 mmol/L (3.5-5.1); Sodium 142 mmol/L (136-145); Total Protein 6.0 g/dL (5.7-8.2)
[2025-02-05 08:31] LABS: Bilirubin, Total 0.3 mg/dL (0.2-1.0); Chloride 108 mmol/L (98-107)
[2025-02-05] MEDS: SODIUM CHLORIDE 0.9% 500 ML IV ONE (10:30)
[2025-02-05] MEDS ORDERED: IBUPROFEN 600 MG TAB PO PRN (10:30)
[2025-02-05] MEDS ORDERED: IBUPROFEN 600 MG TAB PO ONE (10:30)
[2025-02-05] MEDS: KETOROLAC TROMETH 30 MG/ML 1ML VIAL IV ONE (12:54)
[2025-02-05 13:02] LABS: Urine Protein, UAD Negative (Negative)
--- NOTE | 2025-02-05 15:13 | DVHPNRES ---
Progress Note Date Seen: Feb 05, 2025 Resident Creating Document: ORLANDO URIOSTEGUI RESIDENT Medical Necessity Reason Pt with a Central, PICC or Fol: No Subjective Review of Systems 55-year-old female with past medical history of ASTHMA, HTN, HLD came to ER with a complain of shortness of breaths associated with dizziness, nausea and diarrhea. A few days ago the patient experienced nausea and diarrhea for which she went to urgent care and was discharged with Pedialyte. She had 5-6 episodes of loose stool, not mixed with blood or foul-smelling. there was no abdominal pain. She denies any recent sick contacts, has not eaten any street foods or recently change in any medication. CT abdomen and pelvis on 09/2023- diverticulitis in the mid descending colon. Patient went to PCP day before, and EKG shows sinus bradycardia with HR 56. Patient denies any wheezing, chest pain, fever, headache, visual disturbance, abdominal pain, dysuria or any focal weakness. Patient report gaining weight for last few months and snoring at nighttime as well. PAST MEDICAL HISTORY: Asthma, HTN, HLD Surgical History: Denies any surgeries [employer] History: has IUD present Family History: Family hx of DM Social History Smoker: Non-Smoker Alcohol: Occasionally Drugs: Denies Drug Use Lives In: Home Allergy: Tylenol, ibuprofen ROS: patient was seen and examined by me in the bedside. The patient complains of tiredness and chest wall pain. Overnight events were reviewed. . Rest of the ROS is negative. Objective vital signs Vital Sign Date Time Temp Pulse Resp B/P (MAP) Pulse Ox O2 Delivery O2 Flow Rate FiO2 02/05/25 12:38 97.3 64 14 121/83 (96) 97 97.3 02/05/25 11:56 Room Air* 0 21 Total Intake and Output 02/04/25 02/04/25 02/05/25 15:00 23:00 07:00 Intake Total 1280 ml 800 ml Balance 1280 ml 800 ml medications Current Medications Medications Dose Ordered Sig/Mallika Route Start Time Stop Time Status Last Admin Dose Admin Nitroglycerin 0.4 mg Q5MINP PRN SL 02/03/25 21:30 Morphine Sulfate 2 mg Q30M PRN IV 02/03/25 21:30 Pantoprazole Sodium 40 mg DAILY@0600 PO 02/04/25 06:00 02/05/25 05:41 40 MG Ceftriaxone Sodium 50 ml @ 100 mls/hr DAILY@09 IV 02/04/25 09:00 02/05/25 10:52 100 MLS/HR Metronidazole 100 ml @ 100 mls/hr Q8HR IV 02/04/25 06:00 02/05/25 14:22 100 MLS/HR Enoxaparin Sodium 30 mg DAILY SC 02/04/25 10:00 02/05/25 10:58 30 MG Amlodipine Besylate 10 mg DAILY PO 02/04/25 10:00 02/05/25 10:57 10 MG Lisinopril 20 mg DAILY PO 02/04/25 10:00 02/05/25 10:57 20 MG Albuterol 2.5 mg Q6HWA NEB 02/04/25 06:00 02/05/25 11:56 2.5 MG Fexofenadine HCl 60 mg Q12HR PO 02/04/25 10:00 02/05/25 10:56 60 MG Ergocalciferol 50,000 unit Q7D PO 02/04/25 09:00 02/04/25 13:20 50,000 UNIT Atorvastatin Calcium 40 mg HS PO 02/04/25 22:00 02/04/25 22:29 40 MG Examination General Appearance: Alert, Oriented X3, Cooperative HEENT: Atraumatic, PERRLA, EOMI Respiratory: Clear to auscultation, Normal air movement Cardiovascular: Chest wall tenderness present, Regular rate, Normal S1, Normal S2 Abdominal: Normal bowel sounds, Soft, No hepatospenomegaly, left lower quadrant tenderness Extremities: No clubbing, No cyanosis, No edema, Normal pulses Skin: No rashes, No breakdown Neuro: Normal gait, Normal speech, Strength at 5/5 X4 ext, Normal tone Psychological: Normal mental status laboratory and microbiology Laboratory Tests 02/05/25 05:13 Test 02/05/25 05:13 Range/Units Serum Glucose 82 74-106 mg/dL Microbiology Date/Time Source Procedure Growth Status 02/03/25 22:37 Blood Blood Culture - Preliminary NO GROWTH AFTER 24 HOURS OF INCUBATION. Resulted Labs and/or images reviewed: Labs reviewed by me, Image(s) reviewed by me Problem List/Assessment/Plan Problem List/Assessment/Plan # sepsis due to ? gastroenteritis / colitis possible infective etiology -BNP 30.39 -NSS 500 mL bolus and continue NSS 100 cc/hours -CT abdomen pelvis without contrast : Mild left-sided colonic diverticulosis without evidence of acute diverticulitis. -Lactic acid 2.6>1.4>1.7 -Ceftriaxone 1 g IV daily -Metronidazole 500 mg IV daily -Stool for C diff, pending stool culture, pending -Blood culture will follow -Clear liquid diet, advanced to soft diet. 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 -Lisinopril 20 mg p.o. daily # HYPERLIPIDEMIA -CHOL 266, LDL 197, HDL 61, TG 96. -Atorvastatin 40 mg p.o. q.h.s. # ALLERGY DISORDER -H/o anaphylactic reaction needed EpiPen injection 2016. -Patient went to urgent care due to generalized itching prescribed fexofenadine 180 mg daily -Start fexofenadine 60 mg po q.12 H # VITAMIN-D DEFICIENCY -vitamin D3 level 21.8 Start vitamin D3 26428 units p.o. Q weekly # OBESITY, BMI 30.9 -Lifestyle modification -Lipid panel # possible sleep apnea -polysomnography outpatient DIET: Cardiac; soft diet GI prophylaxis: Pantoprazole 40 mg p.o. daily DVT prophylaxis: Lovenox 30 mg sc daily Goals of care discussions, more than 27 minute spent with patient. Full code status. Case discussed with Dr Cornejo, nurse, and patient Plan discussed with: Patient, Other (RN) Date of Service: Feb 05, 2025 Billing Provider: EDIE CORNEJO MD Common Visit Codes: [id number] INP/OBS CARE(HIGH) ORLANDO URIOSTEGUI RESIDENT Feb 05, 2025 15:13 CLAUDIA GRAHAM RESIDENT Feb 05, 2025 18:08 EDIE CORNEJO MD Feb 06, 2025 07:01
[2025-02-05] MEDS ORDERED: OSELTAMIVIR 30 MG CAP PO ONE (18:15)
[2025-02-05] MEDS: OSELTAMIVIR 75 MG CAP PO ONE (18:49)
--- NOTE | 2025-02-05 18:55 | DVHSR ---
APPROVED REPORT EXAM: Two-dimensional and M-mode echocardiogram with Doppler and color Doppler. Blood Pressure: 99/61 mmHg INDICATION bradycardia rule out cardiac disease RISK FACTORS Height: 5'0, Weight: 158 DIMENSIONS LVDd4.3 (3.8-5.7cm)LA (2D)3.1 (1.9-4.0cm)Aortic Root2.9 (2.0-3.7cm) LVDs3.1 (2.5-4.0cm)LA (MM) (1.9-4.0cm)Aortic Cusp Exc1.4 (1.5-2.0cm) EF (%) 53.0 (55-70%)Rt. Atrium3.2 (1.9-4.0cm)Asc. Aorta3.7 cm IVSd1.2 (0.7-1.1cm)RV (D)3.4 (1.8-2.4cm) PWd0.7 (0.7-1.1cm) Mitral Valve MitralMitral Stenosis E wave0.85m/sMV Mean GR.mmHg A wave0.57m/sMV Peak GR.43mmHg E/A ratio1.52D MVAcm2 DECEL [id number] 1/2 [place] Aortic Valve Aortic ValveAortic Stenosis V10.93m/Cintia Mean GR.3mmHg V21.15m/Cintia Peak GR.5mmHg LVOT Diameter2.1 (1.8-2.4cm)Doppler AVA2.80cm2 Pulmonic Valve V20.72m/s Tricuspid Valve TR Velocity2.13m/s [id number] Conclusion Technically good study. Sinus rhythm. Mild aortic root enlargement. Normal chamber sizes. Valves are normal. EF of 60% with normal RV function. Left ventricular function appears normal. EF is 60% with normal RV function. Unremarkable Doppler. No pericardial effusion masses or vegetations.
[2025-02-05] MEDS ORDERED: OSELTAMIVIR 30 MG CAP PO SCH (22:00)
[2025-02-05] MEDS: OSELTAMIVIR 30 MG CAP PO SCH (23:01)
[2025-02-06] VITALS (11 sets, daily range): BP systolic 95–131; BP diastolic 67–83; PULSE 63–82; RESP 16–18; TEMP 97.2–98.2; O2SAT 96–99
[2025-02-06 06:05] LABS: Hematocrit 40.1 % (36.0-46.0); Hemoglobin 13.9 g/dL (12.2-16.2); Mean Corpuscular Hemoglobin 31.0 pg (28.0-32.0); Mean Corpuscular Volume 89.3 fL (80.0-100.0); Nucleated Red Blood Cells % 0.1 %
[2025-02-06 06:12] LABS: Anion Gap 11 (5-15); Calcium 9.8 mg/dL (8.7-10.4); Carbon Dioxide 23 mmol/L (20-31); Chloride 106 mmol/L (98-107); Potassium 4.2 mmol/L (3.5-5.1); Sodium 140 mmol/L (136-145)
[2025-02-06 06:19] LABS: BUN/Creatinine Ratio 18.7 (10.0-20.0); Blood Urea Nitrogen 23 mg/dL (9-23); Glucose 94 mg/dL (74-106)
[2025-02-06] MEDS ORDERED: TAMIF30 PO (11:28)
--- NOTE | 2025-02-06 14:39 | DVHDSRES ---
Discharge Summary Date of Admission Resident Creating Document: ORLANDO URIOSTEGUI Feb 03, 2025 at 21:25 Date of Discharge: Feb 06, 2025 Admitting Diagnosis # sepsis due to ? gastroenteritis / colitis possible infective etiology Labs/Diagnostic Data: Laboratory Results Test 02/06/25 04:50 02/05/25 13:01 02/05/25 11:31 02/05/25 05:13 White Blood Count 10.1 10^3/uL (4.4-10.8) Red Blood Count 4.49 10^6/uL (4.0-5.20) Hemoglobin 13.9 g/dL (12.2-16.2) Hematocrit 40.1 % (36.0-46.0) Mean Corpuscular Volume 89.3 fL (80.0-100.0) Mean Corpuscular Hemoglobin 31.0 pg (28.0-32.0) Mean Corpuscular Hemoglobin Concent 34.6 g/dL (32.0-36.0) Red Cell Distribution Width 13.6 % (11.8-14.3) Platelet Count 332 10^3/uL (140-450) Mean Platelet Volume 8.0 fL (6.9-10.8) Neutrophils (%) (Auto) 54.1 % (37.0-80.0) Lymphocytes (%) (Auto) 32.8 % (10.0-50.0) Monocytes (%) (Auto) 8.7 % (0.0-12.0) Eosinophils (%) (Auto) 3.5 % (0.0-7.0) Basophils (%) (Auto) 0.9 % (0.0-2.0) Neutrophils # (Auto) 5.5 10 ^3/uL (1.6-8.6) Lymphocytes # (Auto) 3.3 10 ^3/uL (0.4-5.4) Monocytes # (Auto) 0.9 10 ^3/uL (0-1.3) Eosinophils # (Auto) 0.4 10 ^3/uL (0-0.8) Basophils # (Auto) 0.1 10 ^3/uL (0-0.2) Nucleated Red Blood Cells 0.1 % Sodium Level 140 mmol/L (136-145) Potassium Level 4.2 mmol/L (3.5-5.1) Chloride Level 106 mmol/L (98-107) Carbon Dioxide Level 23 mmol/L (20-31) Anion Gap 11 (5-15) Blood Urea Nitrogen 23 mg/dL (9-23) Creatinine 1.23 mg/dL (0.550-1.02) Glomerular Filtration Rate Calc 53 mL/min (>90) BUN/Creatinine Ratio 18.7 (10.0-20.0) Serum Glucose 94 mg/dL (74-106) Calcium Level 9.8 mg/dL (8.7-10.4) Stool for White Cells None seen Urine Color Light-yellow (Yellow) Urine Clarity Clear (Clear) Urine pH 6.0 (5.0-9.0) Urine Specific [place] 1.010 (1.001-1.035) Urine Protein Negative (Negative) Urine Ketones Negative (Negative) Urine Blood Negative /uL (Negative) Urine Nitrite Negative (Negative) Urine Bilirubin Negative (Negative) Urine Urobilinogen Normal mg/dL (Negative) Urine Leukocyte Esterase Trace /uL (Negative) Urine RBC 1 /hpf (0 - 4) Urine Microscopic WBC 2 /HPF (0-5) Urine Squamous Epithelial Cells Few /hpf (<5) Urine Bacteria None seen /hpf (None Seen) Urine Glucose Normal mg/dL (Normal) Total Bilirubin 0.3 mg/dL (0.2-1.0) Aspartate Amino Transferase (AST) 17 U/L (13-40) Alanine Aminotransferase (ALT) 20 U/L (7-40) Alkaline Phosphatase 82 U/L (46-116) Total Protein 6.0 g/dL (5.7-8.2) Albumin 3.9 g/dL (3.2-4.8) Test 02/04/25 21:05 02/04/25 17:21 02/04/25 05:06 02/03/25 22:37 Lipase 45 U/L (12-53) Influenza Type A Antigen Negative (Negative) Influenza Type B Antigen Positive (Negative) SARS-CoV-2 Antigen (Rapid) Negative (NEGATIVE) Lactic Acid Level 1.7 mmol/L (0.4-2.0) Direct Bilirubin < 0.1 mg/dL (<0.3) Prothrombin Time 10.8 sec (9.3-11.8) Prothrombin Time INR 1.02 (0.9-1.15) Activated Partial Thromboplast Time 26.4 SEC (24.5-34.5) Hepatitis B Surface Antigen Negative (Negative) Hepatitis C Antibody Negative (Negative) Test 02/03/25 16:38 02/03/25 15:48 02/03/25 15:27 Troponin I High Sensitivity < 3 ng/L (</=34) D-Dimer, Quantitative 0.31 mg/L FEU (0.0-0.49) Hemoglobin A1c 5.5 % A1C (<5.7) B-Type Natriuretic Peptide 30.39 pg/mL (0-100) Triglycerides Level 96 mg/dL (< 150) Cholesterol Level 266 mg/dL (< 200) LDL Cholesterol 197 mg/dL (< 100) HDL Cholesterol 61 mg/dL (40-59) Vitamin D 25-Hydroxy 21.8 ng/mL (30.0-100) Thyroid Stimulating Hormone (TSH) 0.90 uIU/mL (0.55-4.78) POC Glucose 108 mg/dl (70-106) Other Laboratory Tests 02/06/25 04:50 Brief Hx & Hospital Course: 55-year-old female with past medical history of ASTHMA, HTN, HLD came to ER with a complain of shortness of breaths associated with dizziness, nausea and diarrhea. A few days ago the patient experienced nausea and diarrhea for which she went to urgent care and was discharged with Pedialyte. She had 5-6 episodes of loose stool, not mixed with blood or foul-smelling. there was no abdominal pain. She denies any recent sick contacts, has not eaten any street foods or recently change in any medication. CT abdomen and pelvis on 09/2023- diverticulitis in the mid descending colon. Patient went to PCP day before, and EKG shows sinus bradycardia with HR 56. Patient denies any wheezing, chest pain, fever, headache, visual disturbance, abdominal pain, dysuria or any focal weakness. Patient report gaining weight for last few months and snoring at nighttime as well. Brief history of hospitalization: Patient came in for sepsis due to possible viral gastroenteritis / colitis. her BNP was 30.39. We started her on normal saline 500 mL bolus and continued normal saline 100 cc/hour. A CT abdomen pelvis without contrast showed mild left-sided colonic diverticulosis without evidence of acute diverticulitis. Lactic acid was downtrending from 2.6-1 0.4-1.7. We started her on ceftriaxone 1 g IV daily, metronidazole 500 mg IV daily. stool for C diff was sent and came back negative. Stool culture was also sent and is pending. Blood culture came back negative. Patient was on clear liquid diet which was advanced to soft diet. Patient tested positive for influenza B and was started on oseltamivir. For chest pain due to costochondritis we gave her ibuprofen. Her lactic acidosis with a level of 2.6, it was downtrending to 2.4 and then 1.7 for which we gave normal saline 100 cc per hour intravenously. Patient has a history of bradycardia and we pulled out cardiac disease EKG showed sinus rhythm, heart rate was 65 and QTC was 489. An echo was ordered and ejection fraction was 60%, valves were normal, no pericardial effusion masses or vegetation seen. For patient's hypercalcemia serum level 10.9, we started normal saline 100 cc/hour. For CHITO due to vasomotor nephropathy, we continue normal saline measured her BNP and avoided nephrotoxic drugs. Patient also had essential hypertension for which we gave her amlodipine 10 mg per orally and lisinopril 20 mg daily. For hyperlipidemia cholesterol 266, LDL 197, HDL 61, P 96 we gave her atorvastatin 40 mg per orally q.h.s.. Patient also had allergy disorder with a history of anaphylactic reaction the needed EpiPen in 2017. We gave her fexofenadine 60 mg p.o. Q 12. For patient's vitamin-D deficiency we started vitamin-D 74155 units p.o. Q weekly. Patient is also obese with a BMI of 30.9. We have counseled the patient extensively over 10 minutes on lifestyle modification, need of exercise and dietary control. He also ordered a lipid panel for her. Lastly patient might have possible sleep apnea and we have suggested a polysomnography to be done outpatient. Patient has now stable for discharge. We have counseled the patient regarding the continuation of oseltamivir for her influenza and counseled regarding the need for mask and proper handwashing technique. Patient is communicated understanding in his being discharged on oseltamivir. General Appearance: Alert, Oriented X3, Cooperative HEENT: Atraumatic, PERRLA, EOMI Respiratory: Clear to auscultation, Normal air movement Cardiovascular: Chest wall tenderness present, Regular rate, Normal S1, Normal S2 Abdominal: Normal bowel sounds, Soft, No hepatospenomegaly, left lower quadrant tenderness Extremities: No clubbing, No cyanosis, No edema, Normal pulses Skin: No rashes, No breakdown Neuro: Normal gait, Normal speech, Strength at 5/5 X4 ext, Normal tone Psychological: Normal mental status Operations or Procedures CHEST RADIOGRAPH IMPRESSION: No acute cardiopulmonary disease. CT AB PEL WO CON-NO ORAL OR IV IMPRESSION: -No acute abdominal or pelvic findings. -Mild left-sided colonic diverticulosis without evidence of acute diverticulitis. Radiation optimization: All CT scans at this facility use at least one of these dose optimization techniques: automated exposure control mA and/or kV adjustment per patient size (includes targeted exams where dose is matched to clinical indication) or iterative reconstruction. PROCEDURE(s): ECID - ECHO 2D MODE CARDIAC DOP REASON: hypertension ORDER NUMBER(s): [id number], ACCESSION NUMBER(s): [id number] APPROVED REPORT EXAM: Two-dimensional and M-mode echocardiogram with Doppler and color Doppler. Blood Pressure: 184/103 mmHg INDICATION Hypertension RISK FACTORS Height: 5'6", Weight: 165 DIMENSIONS LVDd 3.8 (3.8-5.7cm) LA (2D) 4.1 (1.9-4.0cm) Aortic Root 3.2 (2.0- 3.7cm) LVDs 2.6 (2.5-4.0cm) LA (MM) (1.9-4.0cm) Aortic Cusp Exc 1.9 (1.5- 2.0cm) EF (%) 61.0 (55-70%) Rt. Atrium 3.5 (1.9-4.0cm) Asc. Aorta cm IVSd 1.2 (0.7-1.1cm) RV (D) (1.8-2.4cm) Mitral Valve Mitral Mitral Stenosis E/A ratio 0.0 2D MVA cm2 Aortic Valve Aortic Valve Aortic Stenosis V1 1.46m/s AO Mean GR. 8mmHg V2 1.80m/s AO Peak GR. 13mmHg LVOT Diameter 1.8 (1.8-2.4cm) Doppler PONCHO 2.06cm2 Pulmonic Valve V2 0.91m/s Other Information Quality : Technically Limited Rhythm : Technically limited study due to patient moving. Conclusion Sinus rhythm. Left atrial enlargement. Sigmoid septum. Normal LV function. Normal RV function. Ejection fraction of 60%. Valves are normal. No pericardial effusion masses or vegetations. SIGNED BY: DIETER ALTAMIRANO Sr., MD SIGNED DATE/TIME: 02/05/25 495 Condition at Discharge: Stable Final Diagnosis/Problems List # SEPSIS DUE TO? 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 # HYPERCALCEMIA # CHITO DUE TO VASOMOTOR NEPHROPATHY # ESSENTIAL HYPERTENSION # HYPERLIPIDEMIA # ALLERGY DISORDER # VITAMIN-D DEFICIENCY # OBESITY, BMI 30.9 # POSSIBLE SLEEP APNEA Discharge Disposition: Home Discharge Instruct/Medications Diet: Consistent carbohydrate, Cardiac 2g Na,low cholest Activity: No Restrictions, As Tolerated Follow Up/Referral: follow up in dc clinic within a week followup with pcp Medications: oseltamivir for 5 days continue home medications Scheduled Albuterol Sulfate (Ventolin), 1 VIAL NEB Q6HR, (Reported) Amlodipine Besylate (Amlodipine Besylate), 1 TAB PO DAILY, (Reported) Atorvastatin Calcium (Lipitor), 1 TAB PO QPM, (Reported) Lisinopril (Lisinopril), 1 TAB PO DAILY, (Reported) Magnesium Oxide (Magnesium Oxide), 1 TAB PO DAILY, (Reported) Omeprazole (Gnp Omeprazole), 1 TAB PO DAILY, (Reported) Oseltamivir Phosphate (Tamiflu), 30 MG PO Q12HR Zinc Gluconate (Zinc), 100 MG PO DAILY, (Reported) Scheduled PRN Albuterol Sulfate (Albuterol Sulfate), 0.083 % IN for FOR COUGH, (Reported) Discharge Statement: "Patient was advised to return to the ER or call 911 if any headaches, dizziness, shortness of breath, chest pain, abdominal pain, bleeding, fevers, or worsening of medical condition. Patient was counseled about treatment plan, medications, possible side effects, patientverbalized understanding. All questions were answered to the best of my ability. This discharge took greater then 30 minutes in planning, reviewing documentation, counseling the patient, and discussing with other team members." ASSESSMENT ASSESSMENT Assessment # sepsis due to ? 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
== END 2025-02-06 13:05 | disposition home or self-care (01) | DRG 720 ==
LOC: ER 15:11 → OVERFLOW 21:25 → WEST WING 23:33 → CENTRAL 02-04 20:55
PROVIDERS: ADMIT Internal Medicine; ATTEND Internal Medicine
DX: A41.89 Other specified sepsis (principal); N17.0 Acute kidney failure with tubular necrosis; E87.20 Acidosis, unspecified; A08.4 Viral intestinal infection, unspecified; E66.9 Obesity, unspecified; E78.5 Hyperlipidemia, unspecified; J10.1 Influenza due to other identified influenza virus with other respiratory manifestations; M94.0 Chondrocostal junction syndrome [Tietze]; G47.30 Sleep apnea, unspecified; I24.9 Acute ischemic heart disease, unspecified; I10 Essential (primary) hypertension; J45.909 Unspecified asthma, uncomplicated; K57.30 Diverticulosis of large intestine without perforation or abscess without bleeding; E83.52 Hypercalcemia; F41.9 Anxiety disorder, unspecified; Z68.30 Body mass index [BMI] 30.0-30.9, adult; Z79.899 Other long term (current) drug therapy; Z88.6 Allergy status to analgesic agent; Z83.3 Family history of diabetes mellitus; G90.89 Other disorders of autonomic nervous system; E86.0 Dehydration
CPT/HCPCS: 36415; 71045; 74176; 80048; 80053; 80061; 80076; 81001; 82306; 82962; 83036; 83605; 83690; 83880; 84443; 84484; 85025; 85048; 85379; 85610; 85730; 86803; 87040; 87045; 87340; 87426; 87427; 87493; 87804; 93005; 93306; 94640; G0378; G9035; J1885; J3490; Q0162

== ENCOUNTER 2025-03-25 09:58 | Emergency (ER) | payer MEDICAID ==
[~2025-03-25] VITALS: Ht 154.9 cm; Wt 72.0 kg
[~2025-03-25 09:58] MED LIST changes: +ALB5IS NEB; +ALBU0.084 IN; +AMLO1TAB23 PO; +ATOR10TA PO; -CIPR-173 PO; +LISI20TA56 PO; +MAGN400T40 PO; -METR-344 PO; +OMEP20TA PO; +TAMIF30 PO; +ZINC100T5 PO
--- NOTE | 2025-03-25 10:34 | ED.PDOC ---
Back pain HPI HPI Comments 55 y.o female with PMHx of HTN, presents to the ED for a chief complaint of mid upper back pain that started one week ago. Patient describes pain as sharp and a burning sensation that radiates to her neck. Patient mentions developing right sided arm pain radiating to her shoulder and chest s/p lifting something heavy and since whenever she twists, bend, turns or lays down, pain exacerbates. She denies any hx of chronic back pain or surgical intervention. Chief Complaint: Back Pain Time Seen by MD: 10:22 Primary Care Provider: CLIN[facility] MEDICA Reviewed Notes: Nurses Notes, Medications, Allergies Allergies: Coded Allergies: Acetaminophen (Verified Allergy, Unknown, 02/13/18) Ibuprofen (Verified Allergy, Unknown, 10/12/23) Home Meds Active Scripts Prednisone (Prednisone) 10 Mg Tab, 10 MG PO DAILY for 5 Days, #5 MG Prov:AVELINA RODRIGUES MD 03/25/25 Amoxicillin Trihydrate (Amoxicillin) 500 Mg Tab, 1 TAB PO TID for 7 Days, #21 TAB Prov:AVELINA RODRIGUES MD 03/25/25 Oseltamivir Phosphate (Tamiflu) 30 Mg Cp, 30 MG PO Q12HR for 4 Days, #8 CAP Prov:JESSICA FAITH RESIDENT 02/06/25 Reported Medications Albuterol Sulfate (Albuterol Sulfate) 0.083 % Neb, 0.083 % IN PRN for FOR COUGH, INH 02/03/25 Albuterol Sulfate (Ventolin) 2.5 Mg/0.5 Ml Nb, 1 VIAL NEB Q6HR, #120 VIAL 5 Refills 02/03/25 Magnesium Oxide (MAGNESIUM OXIDE) 400 Mg Tab, 1 TAB PO DAILY, #30 TAB 5 Refills 02/03/25 Zinc Gluconate (ZINC) 100 Mg Tab, 100 MG PO DAILY, TAB 02/03/25 Omeprazole (Gnp Omeprazole) 20 Mg Tab, 1 TAB PO DAILY, #90 TAB 1 Refill 02/03/25 Lisinopril (Lisinopril) 20 Mg Tab, 1 TAB PO DAILY, #30 TAB 5 Refills 02/03/25 Atorvastatin Calcium (Lipitor) 10 Mg Tab, 1 TAB PO QPM, #90 TAB 1 Refill 02/03/25 Amlodipine Besylate (Amlodipine Besylate) 10 Mg Tab, 1 TAB PO DAILY, #30 TAB 5 Refills 02/03/25 Information Source: Patient Mode of Arrival: Ambulatory Timing: Weeks (1) Duration: Since onset Location of Back pain: (B) Upper back Severity: Moderate Quality: Sharp Onset: Bending, Twisting, Lifing History of: None Modifying Factors: Nothing Past Medical History PAST MEDICAL HISTORY: Asthma, HTN Surgical History: Denies all surgeries CHANGE AGENT History: Denies all CHANGE AGENT Hx Family History Family History: Family hx of DM, Family hx of heart shawn Social History Smoker: Non-Smoker Alcohol: Occasionally Drugs: Denies Drug Use Lives In: Home Constitutional: denies: chills, diaphoresis, fatigue, fever, malaise, sweats, weakness, others EENTM: denies: blurred vision, double vision, ear bleeding, ear discharge, ear drainage, ear pain, ear ringing, eye pain, eye redness, hearing loss, mouth pain, mouth swelling, nasal discharge, nose bleeding, nose congestion, nose pain, photophobia, tearing, throat pain, throat swelling, voice changes, others Respiratory: denies: cough, hemoptysis, orthopnea, SOB at rest, shortness of breath, SOB with excertion, stridor, wheezing, others Cardiovascular: reports: chest pain; denies: dizzy spells, diaphoresis, Dyspnea on exertion, edema, irregular heart beat, left arm pain, lightheadedness, palpitations, PND, syncope, others Gastrointestinal: denies: abdomen distended, abdominal pain, blood streaked bowels, constipated, diarrhea, dysphagia, difficulty swallowing, hematemesis, melena, nausea, poor appetite, poor fluid intake, rectal bleeding, rectal pain, vomiting, others Genitourinary: denies: abnormal vagina bleeding, burning, dyspareunia, dysuria, flank pain, frequency, hematuria, incontinence, pain, , vagina discharge, urgency, others Neurological: reports: numbness; denies: dizziness, fainting, headache, left sided numbness, left sided weakness, paresthesia, pre-existing deficit, right sided numbness, right sided weakness, seizure, speech problems, tingling, tremors, weakness, others Musculoskeletal: reports: back pain; denies: gout, joint pain, joint swelling, muscle pain, muscle stiffness, neck pain, others Integumetry: denies: bruises, change in color, change in hair/nails, dryness, laceration, lesions, lumps, rash, wounds, others Allergic/Immunocompromised: denies: Difficulty Healing, Frequent Infections, Hives, Itching, others Hematologic/Lymphatic: denies: anemia, blood clots, easy bleeding, easy bruising, swollen glands, others Endocrine: denies: excessive hunger, excessive sweating, excessive thirst, excessive urination, flushing, intolerance to cold, intolerance to heat, unexplained weight gain, unexplained weight loss, others Psychiatric: denies: anxiety, bipolar disorder, depression, hopeless, panic disorder, schizophrenia, sleepless, suicidal, others All Other Systems: Reviewed and Negative Physical Exam General Appearance: Moderate Distress HEENT: Normal ENT Inspection, Pharynx Normal, TMs Normal Neck: Full Range of Motion, Non-Tender, Normal, Normal Inspection Respiratory: Chest Non-Tender, Lungs Clear, No Accessory Muscle Use, No Respira tory Distress, Normal Breath Sounds Cardiovascular: No Edema, No JVD, No Murmur, No Gallop, Normal Peripheral Pulses, Regular Rate/Rhythm Breast Exam: Deferred Gastrointestinal: No Organomegaly, Non Tender, No Pulsatile Mass, Normal Bowel Sounds, Soft Genitalia: Deferred Pelvic: Deferred Rectal: Deferred Extremities: No calf tenderness, Normal capillary refill, Normal inspection, Normal range of motion, Non-tender, No pedal edema Musculoskeletal : Apperance: Normal Neurologic: Alert, editor managing newspaper II-XII nml as Tested, No Motor Deficits, Normal Affect, Normal Mood, No Sensory Deficits Cerebellar Function: Normal Reflexes: Normal Skin: Dry, Normal Color, Warm Peripheral Pulses: 3+ Radial (R), 3+ Radial (L) Lymphatic: No Adenopathy Was a procedure done? Was a procedure done?: No EKG EKG : Pulse Rate (adult): 73 [place]: Normal Cardiac Rhythm: NSR Back Pain Differential Dx Differential Diagnosis: DJD, Musculoskeletal Pain, Strain X-Ray, Labs, Meds, VS Vital Signs Date Time Temp Pulse Resp B/P (MAP) Pulse Ox O2 Delivery O2 Flow Rate FiO2 03/25/25 14:14 60 20 100 Room Air* 0 21 03/25/25 14:14 97.6 60 20 153/87 (109) 100 97.6 03/25/25 10:35 73 03/25/25 10:07 73 03/25/25 09:59 97.9 77 16 142/99 97 97.9 Lab Test 03/25/25 12:24 03/25/25 11:21 Range/Units Troponin I High Sensitivity < 3 L < 3 L </=34 ng/L White Blood Count 8.1 4.4-10.8 10^3/uL Red Blood Count 4.61 4.0-5.20 10^6/uL Hemoglobin 14.1 12.2-16.2 g/dL Hematocrit 40.7 36.0-46.0 % Mean Corpuscular Volume 88.3 80.0-100.0 fL Mean Corpuscular Hemoglobin 30.6 28.0-32.0 pg Mean Corpuscular Hemoglobin Concent 34.7 32.0-36.0 g/dL Red Cell Distribution Width 13.4 11.8-14.3 % Platelet Count 376 140-450 10^3/uL Mean Platelet Volume 7.5 6.9-10.8 fL Neutrophils (%) (Auto) 58.0 37.0-80.0 % Lymphocytes (%) (Auto) 31.0 10.0-50.0 % Monocytes (%) (Auto) 7.8 0.0-12.0 % Eosinophils (%) (Auto) 2.4 0.0-7.0 % Basophils (%) (Auto) 0.8 0.0-2.0 % Neutrophils # (Auto) 4.7 1.6-8.6 10 ^3/uL Lymphocytes # (Auto) 2.5 0.4-5.4 10 ^3/uL Monocytes # (Auto) 0.6 0-1.3 10 ^3/uL Eosinophils # (Auto) 0.2 0-0.8 10 ^3/uL Basophils # (Auto) 0.1 0-0.2 10 ^3/uL Nucleated Red Blood Cells 0.1 % Sodium Level 142 136-145 mmol/L Potassium Level 4.6 3.5-5.1 mmol/L Chloride Level 105 98-107 mmol/L Carbon Dioxide Level 27 20-31 mmol/L Anion Gap 10 5-15 Blood Urea Nitrogen 15 9-23 mg/dL Creatinine 1.13 H 0.550-1.02 mg/dL Glomerular Filtration Rate Calc 58 >90 mL/min BUN/Creatinine Ratio 13.3 10.0-20.0 Serum Glucose 71 L 74-106 mg/dL Calcium Level 10.1 8.7-10.4 mg/dL Patient alert. Complaining of musculoskeletal pain. Vitals stable. Answering all questions. Cardiac marker within normal limits. Moving all extremities. No leg swelling. Heart rate within normal limits. Saturation pristine on room air. Lungs clear. No calf tenderness. No discoloration. Possible pleurisy. Was given prescription of Motrin. Explained to the patient. Was told to follow up with her primary care physician. Was told to come back if there is any problem. Time of 1ST Reevaluation: 10:31 Reevaluation 1ST: Improved Patient Education/Counseling: Diagnosis, Treatment, Prognosis Family Education/Counseling: No Family Present SEPSIS Sepsis Screen Date sepsis recognized/suspect: Mar 25, 2025 Time Sepsis recognized/suspect: 1001 Recent Procedure: No On Antibiotic Therapy: No Respiratory Rate >20: No Heart Rate >90: No Temp<36 C (96.8 F) or >38.3 C: No SBP <90 or MAP <65 mmHG: No New Acute Mental Status Change: No Is the patient on CPAP, BIPAP,: No Physician Orders Electrocardigram (03/25/25 10:15) Urinalysis (03/25/25 11:11) Troponin-I Hs (03/25/25 14:11) Vital Signs Date Time Temp Pulse Resp B/P (MAP) Pulse Ox O2 Delivery O2 Flow Rate FiO2 03/25/25 14:14 60 20 100 Room Air* 0 21 03/25/25 14:14 97.6 60 20 153/87 (109) 100 97.6 03/25/25 10:35 73 03/25/25 10:07 73 03/25/25 09:59 97.9 77 16 142/99 97 97.9 Laboratory Tests Test 03/25/25 11:21 White Blood Count 8.1 10^3/uL (4.4-10.8) Departure 1 Departure Time of Disposition: 12:21 Impression: Primary Impression: Pleurisy Disposition: 01 HOME / SELF CARE / HOMELESS Condition: Good e-Prescriptions Prednisone (Prednisone) 10 Mg Tab 10 MG PO DAILY for 5 Days, #5 MG Prov: AVELINA RODRIGUES MD 03/25/25 Amoxicillin Trihydrate (Amoxicillin) 500 Mg Tab 1 TAB PO TID for 7 Days, #21 TAB Prov: AVELINA RODRIGUES MD 03/25/25 Discharged With: Self Critical Care Note Critical Care Time?: No Stability Stability form required: No I personally scribed for AVELINA RODRIGUES MD ([email or web address]) on 03/25/25 at 10:34. Electronically submitted by Mavis Melvin ([facility]). I personally scribed for AVELINA RODRIGUES MD ([email or web address]) on 03/25/25 at 10:35. Electronically submitted by Mavis Melvin ([facility]). AVELINA RODRIGUES MD Mar 25, 2025 10:34
[2025-03-25 11:31] LABS: Hematocrit 40.7 % (36.0-46.0); Hemoglobin 14.1 g/dL (12.2-16.2); Mean Corpuscular Hemoglobin 30.6 pg (28.0-32.0); Mean Corpuscular Volume 88.3 fL (80.0-100.0); Nucleated Red Blood Cells % 0.1 %
[2025-03-25 11:37] LABS: Chloride 105 mmol/L (98-107); Potassium 4.6 mmol/L (3.5-5.1); Sodium 142 mmol/L (136-145)
[2025-03-25 11:38] LABS: Anion Gap 10 (5-15); Calcium 10.1 mg/dL (8.7-10.4); Carbon Dioxide 27 mmol/L (20-31)
[2025-03-25 11:43] LABS: Glucose 71 mg/dL (74-106)
[2025-03-25 11:44] LABS: BUN/Creatinine Ratio 13.3 (10.0-20.0); Blood Urea Nitrogen 15 mg/dL (9-23)
[2025-03-25] MEDS ORDERED: IBU600T PO (12:21)
[2025-03-25] MEDS ORDERED: AMOX500T3 PO (12:22)
[2025-03-25] MEDS ORDERED: PRED10TA PO (12:23)
[2025-03-25 14:14] VITALS: BP 153/87; PULSE 60; RESP 20; TEMP 97.6; O2SAT 100
--- NOTE | 2025-03-25 17:58 | ECG ---
[facility] Test Date: 2025-03-25 Test Time: 10:07:23 Pat Name: FAUSTINO FUENTES Department: ED Room: Gender: F [employer]icking Supervisor: sravanthi : 1970 Requested By: AVELINA RODRIGUES Order Number: [id number] Reading MD: Measurements Intervals [place] Rate: 73 P: 52 KS: 134 QRS: -9 QRSD: 98 T: 54 QT: 414 QTc: 457 Interpretive Statements Sinus rhythm Please click the below link to view image of tracing.
== END 2025-03-25 14:48 | disposition home or self-care (01) ==
LOC: ER 09:58
DX: R09.1 Pleurisy (principal); J45.909 Unspecified asthma, uncomplicated; I10 Essential (primary) hypertension; F10.90 Alcohol use, unspecified, uncomplicated; Z88.6 Allergy status to analgesic agent; Z79.899 Other long term (current) drug therapy; Z79.52 Long term (current) use of systemic steroids; Z83.3 Family history of diabetes mellitus; Y90.9 Presence of alcohol in blood, level not specified
CPT/HCPCS: 36415; 80048; 84484; 85025; 93005